=== PATIENT | female | born 1960 | race Caucasian/White ===

== ENCOUNTER → 2017-05-22 | Outpatient (CLI) | payer OTHER | LOC: FIMAGING 08:35 | PROVIDERS: ATTEND Family Medicine | DX: Z12.31 Encounter for screening mammogram for malignant neoplasm of breast (principal); Z80.3 Family history of malignant neoplasm of breast | CPT/HCPCS: G0202 ==

== ENCOUNTER 2017-07-20 04:29 | Emergency (ER) | payer OTHER ==
[2017-07-20] MEDS ORDERED: KETOROLAC 15 MG/1 ML SDV IVP ONE ×2 (04:51→07:51)
[2017-07-20] MEDS ORDERED: ONDANSETRON 4 MG/2 ML VIAL IVP ONE ×2 (04:52→07:39)
[2017-07-20] MEDS ORDERED: NS 1,000 ML IV ONE (04:58)
[2017-07-20 05:05] LABS: % IMMATURE GRANULYOCYTES 0.2 % (0.0-1.1); ABSOLUTE IMMATURE GRANULOCYTES 0.01 10^3/uL (0.00-0.10); ADD DIFF? NO; ADD MORPH? NO; ADD SCAN? NO; ATYPICAL LYMPHOCYTE FLAG 0 (0-99); FRAGMENT RBC FLAG 0 (0-99); HEMATOCRIT 41.1 % (38.0-47.0); LEFT SHIFT FLG 0 (0-99); LIPEMIA HEMOLYSIS FLAG 90 (0-99); MEAN CELL HEMOGLOBIN 29.6 pg (27.9-34.1); MEAN CELL HEMOGLOBIN CONCENTR. 34.1 g/dL (32.4-36.7); MEAN CELL VOLUME 86.9 fL (81.5-99.8); MEAN PLATELET VOLUME 9.3 fL (8.7-11.7); PLATELET CLUMPS FLAG 30 (0-99); PLATELET COUNT 295 10^3/uL (150-400); RED BLOOD CELL COUNT 4.73 10^6/uL (4.18-5.33); RED CELL DISTRIBUTION WIDTH 11.9 % (11.5-15.2)
--- NOTE | 2017-07-20 05:08 | EDPHY ---
H & P Time Seen by Provider: 07/20/17 04:48 HPI/ROS: CC: Left flank pain HPI: This 57-year-old female with past medical history including an undifferentiated autoimmune disorder, high cholesterol, asthma and kidney stones presents emergency department today complaining of left flank pain that started at 11:00 p.m. last evening. She took 2 aspirin was able to sleep until about 4:00 a.m.. The pain has become more severe and she rates it at 9/10. It is a sharp pain and radiates to her left groin. She has had some stinging with urination. She was treated for UTI about 2 weeks ago with a 5 day course of ciprofloxacin. She feels like her symptoms have not completely gone away. Her first kidney stone was on the right in August 2016, treated at [facility]. She followed up with her PCP and does not have a urologist. She passed a smaller kidney stone without treatment in the fall. She denies fever, chills, vomiting, chest pain or abdominal pain. She has not seen blood in her urine. She feels a little dizzy. REVIEW OF SYSTEMS: Constitutional: No fever, no chills. Eyes: No discharge. ENT: No sore throat. Respiratory: No cough, no shortness of breath. Cardiac: No chest pain, no palpitations. Gastrointestinal: No abdominal pain, no vomiting. Genitourinary: See HPI. Musculoskeletal: See HPI. Skin: No rashes. Neurological: No headache. Past Medical/Surgical History: PMH: High cholesterol, asthma, kidney stones, and a presumed undifferentiated autoimmune disorder discovered while she was trying to get years ago. PSH: Laparoscopy FH: HTN, high cholesterol Allergies: Heparin - face swells; iodine Meds: Singulair, Simvastatin, Cymbalta PCP: Dr. Kemi Leon Social History: No tobacco products, no marijuana. Last ETOH was last evening, two beverages with dinner. Smoking Status: Never smoked Physical Exam: General Appearance: Alert, mod distress. Eyes: Pupils equal and round no pallor or injection. ENT, Mouth: Mucous membranes are dry. Respiratory: There are no retractions, lungs are clear to auscultation. Cardiovascular: Regular rate and rhythm. Gastrointestinal: Abdomen is soft and nontender, no pulsatile masses, bowel sounds normal. Back: Left CVA tenderness. Neurological: Awake and alert, sensory and motor exams grossly normal. Skin: Warm and dry, no rashes. Musculoskeletal: Neck is supple nontender. Extremities are symmetrical, full range of motion. No edema. Psychiatric: Patient is oriented X 3, there is no agitation. Mild anxiety. DIFFERENTIAL DIAGNOSIS: After history and physical exam differential diagnosis was considered for but not limited to: ureterolithiasis, pyelonephritis, Shingles, AAA Constitutional: Initial Vital Signs Temperature (C) 97.7 F 07/20/17 04:46 Heart Rate 62 07/20/17 04:46 Respiratory Rate 16 07/20/17 04:46 Blood Pressure 112/76 07/20/17 04:46 O2 Sat (%) 100 07/20/17 04:46 O2 Delivery Mode Room Air Allergies/Adverse Reactions: Heparin Analogues [Heparin Agents] Allergy (Severe, Verified 07/20/17 04:44) Swelling/neck,face,throat iodine Allergy (Verified 07/20/17 04:46) Home Medications: Medication Instructions Recorded Singulair 06/11/09 Hydrocodone/APAP 5/325 [[place] 1 - 2 tab PO Q4H PRN #6 tab 07/20/17 5/325 (*)] Simvastatin 07/20/17 Medical Decision Making - Diagnostics Imaging Results: 3.6 mm stone distal left ureter, almost into the bladder. Moderate hydronephrosis. --verbal per Dr. Baxter Imaging: Discussed imaging studies w/ explosive operator supervisor Radiologist ED Course/Re-evaluation: The patient was seen and examined. Vital signs reviewed. She was feeling slightly dizzy in her mucous membranes were dry so she was given a L of IV fluids for hydration. A CBC and basic metabolic panel were normal. UA showed 3 + blood. She was given Zofran 4mg IV push for her nausea but vomited shortly thereafter. Subsequently, her nausea resolved. She was also given Toradol 15 mg IV push with a marked decrease in her pain to a 2/10. A CT Abd/Pelvis WO contrast revealed a 3.6 mm distal left ureteral stone with moderate hydronephrosis. Final report pending. On re-evaluation the patient's pain is completely resolved at this time. She will take ibuprofen 600 mg at home if the pain returns. Her would like her to have a prescription for a few narcotic pills in case the pain returns. I will give her a prescription for [place], #6. They have nausea medication at home. She also has Flomax at home which she will take if the pain returns. I have advised her to follow up with Urology for at least 1 visit. She may elect to follow up with her primary care provider 1st if she so chooses. She is also welcome to return to the emergency room at any time should she have any further problems or concerns. - Data Points Laboratory Results: Laboratory Results 07/20/17 04:51 07/20/17 04:51 07/20/17 07/20/17 07/20/17 05:30 04:51 04:51 WBC 5.30 10^3/uL 10^3/uL (3.80-9.50) RBC 4.73 10^6/uL 10^6/uL (4.18-5.33) Hgb 14.0 g/dL g/dL (12.6-16.3) Hct 41.1 % % (38.0-47.0) MCV 86.9 fL fL (81.5-99.8) MCH 29.6 pg pg (27.9-34.1) MCHC 34.1 g/dL g/dL (32.4-36.7) RDW 11.9 % % (11.5-15.2) Plt Count 295 10^3/uL 10^3/uL (150-400) MPV 9.3 fL fL (8.7-11.7) Neut % (Auto) 42.3 % % (39.3-74.2) Lymph % (Auto) 43.2 % % (15.0-45.0) [place] % (Auto) 8.5 % % (4.5-13.0) Eos % (Auto) 4.7 % % (0.6-7.6) Baso % (Auto) 1.1 % % (0.3-1.7) Nucleat RBC Rel Count 0.0 % % (0.0-0.2) Absolute Neuts (auto) 2.24 10^3/uL 10^3/uL (1.70-6.50) Absolute Lymphs (auto) 2.29 10^3/uL 10^3/uL (1.00-3.00) Absolute Monos (auto) 0.45 10^3/uL 10^3/uL (0.30-0.80) Absolute Eos (auto) 0.25 10^3/uL 10^3/uL (0.03-0.40) Absolute Basos (auto) 0.06 10^3/uL 10^3/uL (0.02-0.10) Absolute Nucleated RBC 0.00 10^3/uL 10^3/uL (0-0.01) Immature Gran % 0.2 % % (0.0-1.1) Immature Gran # 0.01 10^3/uL 10^3/uL (0.00-0.10) Sodium 141 mEq/L mEq/L (134-144) Potassium 4.0 mEq/L mEq/L (3.5-5.2) Chloride 99 mEq/L mEq/L (97-110) Carbon Dioxide 25 mEq/l mEq/l (22-31) Anion Gap 17 mEq/L H mEq/L (8-16) BUN 18 mg/dL mg/dL (7-23) Creatinine 0.6 mg/dL mg/dL (0.6-1.0) Estimated GFR > 60 Glucose 109 mg/dL H mg/dL (70-100) Calcium 10.1 mg/dL mg/dL (8.5-10.4) Urine Color PALE YELLOW Urine Appearance CLOUDY Urine pH 7.0 (5.0-7.5) Ur Specific [place] 1.015 (1.002-1.030) Urine Protein NEGATIVE (NEGATIVE) Urine Ketones NEGATIVE (NEGATIVE) Urine Blood 3+ H (NEGATIVE) Urine Nitrate NEGATIVE (NEGATIVE) Urine Bilirubin NEGATIVE (NEGATIVE) Urine Urobilinogen 0.2 EU EU (0.2-1.0) Ur Leukocyte Esterase NEGATIVE (NEGATIVE) Urine RBC Pending Urine WBC Pending Ur Epithelial Cells Pending Urine Glucose NEGATIVE (NEGATIVE) Medications Given: Discontinued Medications Sodium Chloride (Ns) 1,000 mls @ 0 mls/hr IV ONCE ONE; Wide Open PRN Reason: Protocol Stop: 07/20/17 04:59 Last Admin: 07/20/17 05:07 Dose: 1,000 mls Ketorolac Tromethamine (Toradol) 15 mg IVP EDNOW ONE Stop: 07/20/17 04:52 Last Admin: 07/20/17 05:08 Dose: 15 mg Ondansetron HCl (Zofran) 4 mg IVP EDNOW ONE Stop: 07/20/17 04:53 Last Admin: 07/20/17 05:05 Dose: 4 mg Departure - Departure Disposition: Home, Routine, Self-Care Clinical Impression: Ureterolithiasis Condition: Good Instructions: Ureteral Stones (ED) Additional Instructions: Drink plenty of fluids. Ibuprofen for pain. [place] only for severe pain unrelieved by Ibuprofen. If pain returns, consider taking Flomax (which you say you have at home from prior stone). Follow up with Urology, call Saturday to arrange appointment. Return to the ER sooner if any further problems or concerns. Referrals: Oscar Dominguez MD [Medical Doctor] - 5-7 days, call for appt. KEMI PATTERSON [Non Staff Provider ()] - As per Instructions Prescriptions: Hydrocodone/APAP 5/325 [[place] 5/325 (*)] 1 - 2 tab PO Q4H PRN #6 tab PRN Reason: Pain, Moderate
[2017-07-20 05:12] LABS: ANION GAP 17 mEq/L (8-16); CALCIUM 10.1 mg/dL (8.5-10.4); CARBON DIOXIDE 25 mEq/l (22-31); CHLORIDE 99 mEq/L (97-110); CREATININE 0.6 mg/dL (0.6-1.0); GLOMERULAR FILTRATION RATE > 60; GLUCOSE 109 mg/dL (70-100); SODIUM 141 mEq/L (134-144)
[2017-07-20 05:42] LABS: COLOR PALE YELLOW; LEUKOCYTE ESTERASE,URINE NEGATIVE (NEGATIVE); NITRITE,URINE NEGATIVE (NEGATIVE)
[2017-07-20 05:57] LABS: AMORPHOUS 2+ /hpf (NONE-1+)
[2017-07-20 05:59] LABS: MUCUS 1+ /lpf (NONE-1+)
[2017-07-20] MEDS ORDERED: TAMSULOSIN HCL 0.4 MG CAP PO ONE ×2 (06:36→06:42)
[2017-07-20 08:50] VITALS: RESP 16; TEMP 98.1
[2017-07-20 09:19] VITALS: BP 117/74; PULSE 67; O2SAT 97
== END 2017-07-20 09:17 | disposition home or self-care (01) ==
LOC: CED 04:29
DX: N20.1 Calculus of ureter (principal); E86.9 Volume depletion, unspecified; J45.909 Unspecified asthma, uncomplicated
CPT/HCPCS: 74176-PO; 80048-PO; 81003-PO; 81015-PO; 85025-PO; 96374; J1885; J2405